=== PATIENT | male | born 1980 | race Caucasian/White ===

== ENCOUNTER → 2018-10-01 09:02 | Outpatient (CLI) | payer OTHER, SELFPAY ==
[2018-09-24 08:37] VITALS: BMI 29.8
--- NOTE | 2018-09-30 15:15 | MASS_PTH ---
PATIENT: LIZZIE MILLER LOC: [facility] U#:[id number] AGE/SX: 45/M ROOM: RE10/01/[address]: Dr. Zach Saab MD : [id number] BED: DIS: SPEC #: [id number] RECD: 09/30/18 16:25 STATUS: MARY KATE RECésar #: [id number] DESIRE: 09/30/18 15:[address]: Zach Saab DEPT: SURGICAL PATHOLOGY RECD BY: Tim Vásquez ENTERED: 10/01/18 10:30 SP TYPE: Mass OTHR DR: Dr. Aries Latif MD Tissues: Forehead, NOS Procedures: Surgery Specimen Level III HEADER OPERATION: Excision subcutaneous mass right forehead PRE-OP DIAGNOSIS: Lesion of subcutaneous tissue TISSUE SUBMITTED: Subcutaneous mass right forehead MICROSCOPIC DIAGNOSIS Subcutaneous mass right forehead, excision: Mature adipose tissue, consistent with lipoma. ERICK:yusuf 10/04/18 MICROSCOPIC DESCRIPTION Slides are reviewed. GROSS DESCRIPTION Received in fixative is one container labeled with the patient's name and designated right forehead. The specimen consists of two pieces of yellow adipose tissue measuring 1.5 x 1.5 x 0.5 cm and 0.5 x 0.5 x 0.2 cm. The larger piece is bisected. The entire specimen is submitted in one cassette. / SJ:rg 10/01/18 TC:1 CPT: 69036
--- OUTSIDE RECORDS SUMMARY | 2018-11-16 22:19 | XMS RPT_ITS ---
:1980 Author Organization OHIP Care Team Providers Name Role Phone KEL CARDENAS Referring Unavailable Zach Saab Attending Unavailable Aries Latif Referring Unavailable Zach Saab Attending Unavailable Zach Saab Referring Unavailable Aries Latif Primary Care Unavailable Zach Saab Attending Unavailable Aries Latif Referring Unavailable Lisa Harden PA-C Attending Unavailable Aries Latif Referring Unavailable PROBLEMS PROBLEMS DATE TYPE CONDITION / CODE ATTENDING STATUS SOURCE 10/01/2018 Unknown L98.9 - Disorder Zach Saab of the [facility] tissue, Repository unspecified / L98.9(ICD-10) PROCEDURES PROCEDURES No Procedure Records FoundRESULTS RESULTS SURGERY VISIT REPORT Observed: 10/07/2018 Status: F Source: [place] 12:42 PM [facility] REPOSITORY [facility] [address] [place] [address] OFFICE VISIT Date of Service: 09/30/18 MR#: [id number] Acct: [id number] Name: LIZZIE CRAMER Rep #: [id number] : 1980 Provider: Zach Saab MD Age/Sex: 38/M Location[place] [facility] Status: Signed Intake Intake Visit Reasons: Rt Forehead Lipoma Excision Chief Complaint: excision forehead mass Crimping Machine Operator Required: No Is patient in pain?: No Allergies No Known Allergies Allergy (Verified 10/06/18 14:24) Medications NK 09/24/18 [History Confirmed 09/24/18] [facility] Medical History No significant past medical history (Acute) Surgical History History of ankle surgery (Acute) History of placement of ear tubes (Acute) Hx of pilonidal cyst (Acute) Family History Mother Hypertension Father Hypertension Sister Hypertension Social History Smoking Status: Never smoker second hand exposure: No alcohol intake: current alcohol intake frequency: a few times a month substance use type: does not use caffeine: Yes what type of physical activity do you participate in: running, weight training frequency: 3-4 times per week seatbelt use: always HPI HPI HPI: LIZZIE CRAMER, is a 38 M who presents to the office today for Office Procedures Excision of Skin Provider Documentation Provider Documentation: Preoperative diagnosis: Lesion of subcutaneous tissue of right forehead Postoperative diagnosis: The same Procedure: Excision of a 1 cm subcutaneous lesion of right forehead Surgeon: Katiana Procedure: Right forehead area was sterilely prepped and draped in usual fashion. 1% lidocaine plain was injected. A 2 cm incision was made. Dissection was carried down through the subcutaneous tissue gently spread forehead muscle and identified a fatty lesion which I removed in its entirety. I brought the subcu back together with a 2-0 Vicryl in deep dermal stitches of 3-0 Vicryl on the skin. Dermabond was applied sterile dressings were applied and the patient tolerated the procedure well. Alert Uzma Alert Billing: Yes Face 49341 0.6-1.0cm Procedure Time Out Time Out Informed consent given: Yes Consent signed: Yes Time out checklist: patient, procedure, site marked/identified, positioning of patient, supplies available, allergies confirmed, team agrees on procedure Time out staff in room: Yes Time out verified: Yes Time out date: 09/30/18 Time out time: 15:05 Assessment AND Plan Orders Orders: Coding Level of Care Code Attention Uzma Additional Codes Face - Benign Face: 72461 0.6-1.0cm (20121) 10/07/18 1242 <Electronically signed by Zach Saab MD> Date Zach Saab MD Cosigner Signature: Date (if applicable) CC: SURGERY VISIT REPORT Observed: 10/06/2018 Status: F Source: [place] 4:11 PM [facility] REPOSITORY [facility] [address] [place] [address] [address] [place] [address] OFFICE VISIT Date of Service: 10/06/18 MR#: [id number] Acct: [id number] Name: LIZZIE CRAMER Rep #: [id number] : 1980 Provider: Lisa Harden PA-C Age/Sex: 38/M Location: [facility] Status: Signed Intake Intake Visit Reasons: F/U EXCISION OF FOREHEAD LIPOMA 09/30/18 DP Chief Complaint: wound check forehead Crimping Machine Operator Required: No Is patient in pain?: No Allergies No Known Allergies Allergy (Verified 10/06/18 14:24) Medications NK 09/24/18 [History Confirmed 09/24/18] Subjective Details: Patient is a 2 y/o male I am following for subcutaneous mass on the forehead. Dr. Saab performed an excision of the subcutaneous mass on 09/30/18. Pathology demonstrated a lipoma. Patient tolerated the procedure well. He notes very minimal amount of pain/discomfort. He notes minimal amount of swelling. Objective Details: Forehead- incision c/d/i. No erythema or infection noted. No sutures were removed. Assessment AND Plan Problems 1. Lipoma D17.9 Plan - Follow-up as needed Coding Level of Care Code Global Post Op Diagnoses Lipoma D17.9 10/06/18 1611 <Electronically signed by Lisa Harden PA-C> Date Lisa Harden PA-C Cosigner Signature: Date (if applicable) CC: Aries Latif MD MASS (DEFINE AREA) Observed: 09/30/2018 Status: F Source: [place] 3:15 PM [facility] REPOSITORY Patient: LIZZIE CRAMER : 1980 (38/M) Acct Num: [id number] Phys: Katiana TRAN,Zach Unit Num: [id number] Loc: [facility] Specimen: [id number] Received: 09/30/18 1625 Spec Type: Mass TISSUES 1 TISSUES: Forehead, NOS GROSS DESCRIPTION Received in fixative is one container labeled with the patient's name and designated right forehead. The specimen consists of two pieces of yellow adipose tissue measuring 1.5 x 1.5 x 0.5 cm and 0.5 x 0.5 x 0.2 cm. The larger piece is bisected. The entire specimen is submitted in one cassette. / ERICK:yusuf 10/01/18 TC:1 CPT: 50024 HEADER OPERATION: Excision subcutaneous mass right forehead PRE-OP DIAGNOSIS: Lesion of subcutaneous tissue TISSUE SUBMITTED: Subcutaneous mass right forehead MICROSCOPIC DESCRIPTION Slides are reviewed. MICROSCOPIC DIAGNOSIS Subcutaneous mass right forehead, excision: Mature adipose tissue, consistent with lipoma. ERICK:yusuf 10/04/18 Signed Otis Freedman MD 10/04/18 <signature on file> Performed By: #### PMASS #### [facility] [address] [place], [address] SURGERY VISIT REPORT Observed: 09/24/2018 Status: F Source: [place] 10:33 AM [facility] REPOSITORY [facility] [address] [place] [address] OFFICE VISIT Date of Service: 09/24/18 MR#: [id number] Acct: [id number] Name: LIZZIE CRAMER Rep #: [id number] : 1980 Provider: Zach Saab MD Age/Sex: 38/M Location: [facility] Status: Signed Intake Vital Signs09/24/18 Blood Pressure 149/106 H 09/24/18 Blood Pressure Location Rt brachial Intake Visit Reasons: Rt Forehead Lipoma Crimping Machine Operator Required: No Is patient in pain?: No Allergies No Known Allergies Allergy (Verified 09/24/18 08:39) Medications NK 09/24/18 [History Confirmed 09/24/18] PFSH Surgical History History of ankle surgery (Acute) History of placement of ear tubes (Acute) Hx of pilonidal cyst (Acute) Family History Mother Hypertension Father Hypertension Sister Hypertension Social History Smoking Status: Never smoker second hand exposure: No alcohol intake: current alcohol intake frequency: a few times a month substance use type: does not use caffeine: Yes what type of physical activity do you participate in: running, weight training frequency: 3-4 times per week seatbelt use: always HPI HPI HPI: LIZZIE CRAMER, is a 38 M who presents to the office today for evaluation of a subcutaneous lesion on his right forehead area. This is been there for better than a year and a half and gradually increasing in size. He cannot recall any trauma. He is concerned by its presence. He is never had any infections in this area and this lesion has never drained from the skin. ROS General General: No weight change, appetite, fatigue, colon cancer, breast cancer or weakness HEENT HEENT: No difficulty swallowing, eye injury, eye surgery, swollen glands or hoarseness Endo Endocrine: No thyroid disease, diabetes mellitus, thyroid cancer, Hair loss, heat intolerance or cold intolerance Skin Skin: No rash or changing moles Musc Musculoskeletal: No back problems, arthritis, rheumatoid arthritis, gout or joint pain Cardio Cardiovascular: No murmur, pacemaker, heart disease, atrial fibrillation, high blood pressure, heart attack, heart stent, palpitations, shortness of breat with exertion or chest pain Psych Psychiatric: No depression, anxiety or hearing voices Resp Respiratory: No shortness of breath, No sleep apnea, No cough, No COPD, No asthma, No emphysema, No wheezing Gastro Gastrointestinal: No abdominal pain, No nausea or vomiting, No diarrhea, No constipation, No blood in stool, No acid reflux, No hemorrhoids, No ulcers, No gallbladder problem, No black,tarry stools Betito Hematologic: No blood thinners, No blood disorders, No bleeding, No anemia, No blood clots Neuro Neurologic: No system reviewed and no additional complaints, except as docu, No as per HPI, No abnormal walking, No abnormal hearing, No abnormal movements, No abnormal speech, No behavioral changes, No burning sensations, No confusion, No seizure-like activity, No unsteadiness, No dizziness, No localized weakness, No frequent falls, No headache(s), No lack of coordination, No loss of vision, No memory loss, No numbness, No other visual disturbances, No radiating pain, No restless legs, No sensory deficit, No fainting, No tingling, No tremor(s), No weakness, No other Exam Cardio Heart Sounds: no murmurs Skin Other: Right forehead area shows a 1.5 cm subcutaneous lesion that is movable on the scalp. There is no signs of cellulitis. There is no punctated openings and it is not consistent with a sebaceous cyst. I see no vascular malformations around the area. Assessment AND Plan Problems 1. Lesion of subcutaneous tissue L98.9 Plan My plan will be to excise this in the office. Risk benefits have been reviewed. The patient agrees to proceed. All questions asked have been answered. He is currently not on any blood thinners. His blood pressure was high today in the office and we are going to recheck this. If it remains elevated we will be getting back in contact with his primary care physician Coding Level of Care Code Off vis,est,level 2 Diagnoses Lesion of subcutaneous tissue L98.9 09/24/18 1033 <Electronically signed by Zach Saab MD> Date Zach Saab MD Cosigner Signature: Date (if applicable) CC: Aries Latif MD PROGRESS Observed: 01/06/2018 Status: COMPLETED Source: [place] 3:54 PM [facility] REPOSIT[facility] HNO ID: [id number] Author: Wendy (Cooling Pan Tender) IZAIAH Giang.[facility] Service: (none) Author Type: Nurse Practitioner Type: Progress Notes Filed: 01/06/2018 4:45 PM Note Text: Subjective HPI HPI Lizzie Cramer is a 37 year old male who presents today for CC of tooth pain. This started today. Has tried ibuprofen. Symptoms are worsened by nothing. Risk factors hx of tooth abscess. .Patient presents with: Dental Problem: right lower tooth pain x today with swelling PAST MEDICAL HISTORY Diagnosis Date - Essential hypertension, benign - Mixed hyperlipidemia - Seasonal allergies PAST SURGICAL HISTORY Procedure Laterality Date - PAST SURGICAL HISTORY OF 2005 left foot/leg surgery. Dr Dudley Mann ([facility]) - PAST SURGICAL HISTORY OF 2010 pilonidal cyst abscess, IANDD - PAST SURGICAL HISTORY OF childhood adenoidectomy ALLERGIES Bee Sting; Cats; Seasonal Allergies MEDICATIONS oxyCODONE-acetaminophen (PERCOCET) 5-325 mg tablet 1 to 2 tabs po q 4 hours prn amoxicillin-clavulanic acid (AUGMENTIN) 875-125 mg per tablet Take 1 tablet by mouth twice daily. FAMILY HISTORY Problem Relation Age of Onset - Hypertension Mother - Hypertension Father - Coronary Artery Disease Paternal Grandfather NV - Coronary Artery Disease Maternal Grandfather NV - Coronary Artery Disease Maternal Uncle NV Social History Substance Use Topics - Smoking status: Current Some Day Smoker Types: Cigarettes - Smokeless tobacco: Never Used Comment: occasionally has 1-2 cigarette a day - Alcohol use 4.5 - 6.0 oz/week 3 - 4 Cans of Beer (12oz) per week Review of Systems Constitutional: Negative for chills and fever. Respiratory: Negative for cough, shortness of breath and wheezing. Cardiovascular: Negative for chest pain. Skin: Negative for itching and rash. Objective Blood pressure 118/82, pulse 74, temperature 37 ?C (98.6 ?F), temperature source Tympanic, resp. rate 16, weight 107.5 kg (237 lb). Physical Exam Constitutional: He is oriented to person, place, and time and well-developed, well-nourished, and in no distress. Non-toxic appearance. He does not have a sickly appearance. No distress. HENT: Head: Normocephalic and atraumatic. Right Ear: Hearing, tympanic membrane, external ear and ear canal normal. Left Ear: Hearing, tympanic membrane, external ear and ear canal normal. Nose: Nose normal. Mouth/Throat: Uvula is midline, oropharynx is clear and moist and mucous membranes are normal. Abnormal dentition (missing/broken teeth on right). Dental caries present. Eyes: Conjunctivae and lids are normal. Pupils are equal, round, and reactive to light. Right eye exhibits no discharge. Left eye exhibits no discharge. No scleral icterus. Neck: Trachea normal and normal range of motion. Neck supple. Cardiovascular: Normal rate, regular rhythm and normal heart sounds. Pulmonary/Chest: Effort normal and breath sounds normal. Lymphadenopathy: He has no cervical adenopathy. Neurological: He is alert and oriented to person, place, and time. Skin: No rash noted. He is not diaphoretic. ASSESSMENT/PLAN: 1. Dental abscess - ICD9: 522.5, ICD10: K04.7 -ibuprofen for pain -take medication as prescribed -discussed red flags and reasons for urgent follow up -follow up with dentist ZAYRA - AMOXICILLIN 875 MG-POTASSIUM CLAVULANATE 125 MG TABLET Prescription instructions reviewed with patient as applicable. Patient advised if symptoms do not improve or if symptoms worsen sooner, to contact the office for further evaluation by their primary care physician. Potential red flag symptoms discussed with the patient. Reviewed appropriate action plan to take if red flag symptoms occur. Patient agreeable to treatment plan. Wendy Giang APRN.CNP CNOV Observed: 01/06/2018 Status: COMPLETED Source: [place] 3:45 PM [facility] REPOSITORY [facility] LIZZIE CRAMER ([id number]) 1980 M Date Time Provider Department 01/06/18 3:45 PM WENDY GIANG (KRISTEN) [facility] During your visit today, we recorded the following information about you: Temperature Pulse Respiration Blood pressure 98.6 degrees 74/minute 16/minute 118/82 Weight 107.5 kg Wendy Giang APRN.CNP, APRN.CNP 01/06/2018 4:45 PM Signed Subjective HPI HPI Lizzie Cramer is a 37 year old male who presents today for CC of tooth pain. This started today. Has tried ibuprofen. Symptoms are worsened by nothing. Risk factors hx of tooth abscess. .Patient presents with: Dental Problem: right lower tooth pain x today with swelling PAST MEDICAL HISTORY Diagnosis Date - Essential hypertension, benign - Mixed hyperlipidemia - Seasonal allergies PAST SURGICAL HISTORY Procedure Laterality Date - PAST SURGICAL HISTORY OF 2005 left foot/leg surgery. Dr Dudley Mann ([facility]) - PAST SURGICAL HISTORY OF 2010 pilonidal cyst abscess, IANDamp;D - PAST SURGICAL HISTORY OF childhood adenoidectomy ALLERGIES Bee Sting; Cats; Seasonal Allergies MEDICATIONS oxyCODONE-acetaminophen (PERCOCET) 5-325 mg tablet 1 to 2 tabs po q 4 hours prn amoxicillin-clavulanic acid (AUGMENTIN) 875-125 mg per tablet Take 1 tablet by mouth twice daily. FAMILY HISTORY Problem Relation Age of Onset - Hypertension Mother - Hypertension Father - Coronary Artery Disease Paternal Grandfather NV - Coronary Artery Disease Maternal Grandfather NV - Coronary Artery Disease Maternal Uncle NV Social History Substance Use Topics - Smoking status: Current Some Day Smoker Types: Cigarettes - Smokeless tobacco: Never Used Comment: occasionally has 1-2 cigarette a day - Alcohol use 4.5 - 6.0 oz/week 3 - 4 Cans of Beer (12oz) per week Review of Systems Constitutional: Negative for chills and fever. Respiratory: Negative for cough, shortness of breath and wheezing. Cardiovascular: Negative for chest pain. Skin: Negative for itching and rash. Objective Blood pressure 118/82, pulse 74, temperature 37 ?C (98.6 ?F), temperature source Tympanic, resp. rate 16, weight 107.5 kg (237 lb). Physical Exam Constitutional: He is oriented to person, place, and time and well-developed, well-nourished, and in no distress. Non-toxic appearance. He does not have a sickly appearance. No distress. HENT: Head: Normocephalic and atraumatic. Right Ear: Hearing, tympanic membrane, external ear and ear canal normal. Left Ear: Hearing, tympanic membrane, external ear and ear canal normal. Nose: Nose normal. Mouth/Throat: Uvula is midline, oropharynx is clear and moist and mucous membranes are normal. Abnormal dentition (missing/broken teeth on right). Dental caries present. Eyes: Conjunctivae and lids are normal. Pupils are equal, round, and reactive to light. Right eye exhibits no discharge. Left eye exhibits no discharge. No scleral icterus. Neck: Trachea normal and normal range of motion. Neck supple. Cardiovascular: Normal rate, regular rhythm and normal heart sounds. Pulmonary/Chest: Effort normal and breath sounds normal. Lymphadenopathy: He has no cervical adenopathy. Neurological: He is alert and oriented to person, place, and time. Skin: No rash noted. He is not diaphoretic. ASSESSMENT/PLAN: 1. Dental abscess - ICD9: 522.5, ICD10: K04.7 -ibuprofen for pain -take medication as prescribed -discussed red flags and reasons for urgent follow up -follow up with dentist ZAYRA - AMOXICILLIN 875 MG-POTASSIUM CLAVULANATE 125 MG TABLET Prescription instructions reviewed with patient as applicable. Patient advised if symptoms do not improve or if symptoms worsen sooner, to contact the office for further evaluation by their primary care physician. Potential red flag symptoms discussed with the patient. Reviewed appropriate action plan to take if red flag symptoms occur. Patient agreeable to treatment plan. Wendy Giang APRN.KRISTEN Giang APRN.[place] PETERSON 01/06/2018 4:06 PM Signed ASSESSMENT/PLAN: 1. Dental abscess - ICD9: 522.5, ICD10: K04.7 -ibuprofen for pain -take medication as prescribed -discussed red flags and reasons for urgent follow up -follow up with dentist ZAYRA - AMOXICILLIN 875 MG-POTASSIUM CLAVULANATE 125 MG TABLET Referring Provider: SELF [200] Allergies As of Date: 01/06/2018 Noted Allergy Reaction BEE STING 04/07/2011 7 - Swelling Comments: denies SOB or breathing difficulty CATS 07/07/2013 16 - Unknown SEASONAL ALLERGIES 07/07/2013 16 - Unknown Comments: Trees, grasses, weeds, ragweed Date Reviewed: 01/06/2018 Reviewed by: Wendy Robertson) ANDRIA Giang - Fully Assessed Reason for Visit: Dental Problem [31] Cmt: right lower tooth pain x today with swelling Primary Visit Diagnosis:Dental abscess [K04.7] Order(s):amoxicillin-clavulanic acid (AUGMENTIN) 875-125 mg per tabletTake 1 tablet by mouth twice daily for 10 days.Disp: 20 tabletRfl: 0 Prescriptions as of 01/06/2018 Sig: AMOXICILLIN 875 MG-POTASSIUM * Take 1 tablet by mouth twice * OXYCODONE-ACETAMINOPHEN 5 MG-* 1 to 2 tabs po q 4 hours prn Medication notes this encounter OXYCODONE-ACETAMINOPHEN 5 MG-325 MG TABLET >> Nazanin Casey Ma 01/06/2018 3:49 PM >> NAZANIN CASEY MA ThuJan 06, 2018 3:49 PM done AMOXICILLIN 875 MG-POTASSIUM CLAVULANATE 125 MG TABLET >> Nazanin Casey Ma 01/06/2018 3:49 PM >> NAZANIN CASEY MA ThuJan 06, 2018 3:49 PM done More... Problem List As Of Date 01/06/2018 Noted Resolved Pilonidal cyst with abscess [L05.01] INVALID FOR* More... Essential hypertension, benign [I10] INVALID FOR* Mixed hyperlipidemia [E78.2] INVALID FOR* Seasonal allergies [J30.2] Other instructions from your clinician: ASSESSMENT/PLAN: 1. Dental abscess - ICD9: 522.5, ICD10: K04.7 -ibuprofen for pain -take medication as prescribed -discussed red flags and reasons for urgent follow up -follow up with dentist ZAYRA - AMOXICILLIN 875 MG-POTASSIUM CLAVULANATE 125 MG TABLET Prescriptions ordered this encounter Disp Refills Start End AMOXICILLIN 875 MG-POTASSIUM CLAVULA* 20 t* 0 01/06/2018 01/16/2018 Route: ORAL Sig: Take 1 tablet by mouth twice daily for 10 days. Medications Discontinued During This Encounter amoxicillin-clavulanic acid (AUGMENT* 14 t* 0 03/01/2015 01/06/2018 Class: Print RX Route: ORAL Sig: Take 1 tablet by mouth twice daily. Disc: Discontinued by another Health Care Provider Encounter Status:Closed by WENDY GIANG CNP on 01/06/18 ALLERGIES ALLERGIES DATE TYPE / CODE NAME / CODE REACTION SEVERITY SOURCE 10/06/2018 Drug No Known Unknown [facility] Allergy/416 Allergies/N09150 [facility] 424286(SNOM 0388(RXNORM) Repository ED CT) 07/07/2013 Animal/4201 CATS UNKNOWN [facility] 00338(SNOME [facility] [place] [facility]) Repository 07/07/2013 Environ/420 SEASONAL UNKNOWN [facility] 727343(SNOM ALLERGIES [facility] [place] [facility]) Repository 04/07/2011 Environ/420 BEE STING SWELLING [facility] [id number](SNOM [facility] [place] [facility]) Repository ENCOUNTERS ENCOUNTERS ADMIT/DISCHARGE ACCOUNT ADMITTING ENCOUNTER LOCATION SOURCE NUMBER CLASS 10/06/2018/10/06/20 [id number] Ambulatory BMSBuilding:[address] [place] [address] [place] Repository 10/01/2018 [id number] Ambulatory [facility] ing:[facility] Repository 09/30/2018/09/30/20 [id number] Ambulatory BMSBuilding:B [place] [address] Repository 09/24/2018/09/24/20 [id number] Ambulatory BMSBuilding:B [place] [address] [place] Repository 01/06/2018/01/13/20 [id number] Ambulatory [address] Repository PAYERS PAYERS ENCOUNTER GUARANTOR PAYER SUBSCRIBER SOURCE 10/06/2018 LIZZIE KUNZ Primary MATT [facility] [id number] Insurance:[facility] ROCÍO: [facility] RADHA lund [facility]: [id number], [id number] [place]ository [place] [address]Jzt: Date:1509-63-68[address] [place] () [id number]: 10/06/2018 Secondary NOT GIVENUNK B[place] Insurance:SELF PAY [facility] Number: Effective Repository Date:2018-09-30 10/01/2018 [facility] Primary MATT [facility] [id number] Insurance:[employer]P SCHLABACHDOB: Community GARCIA olicy Number: [id number], [id number] Repository [place] [address]Zcw: Date:3298-18-05QR [address] [place] () [id number]: 10/01/2018 Secondary NOT GIVENUNK [place] Insurance:SELF PAY [facility] Number: Effective Repository Date:2018-10-01 09/30/2018 [facility] Primary MATT [facility] [id number] Insurance:[employer] SCHLABACHDOB: Community GARCIA olicy Number: [id number], [id number] Repository [place] [address]Wqu: Date:8853-46-63[address] [place] () [id number]: 09/30/2018 Secondary NOT GIVENUNK [place] Insurance:SELF PAY [facility] Number: Effective Repository Date:2018-09-30 09/24/2018 [facility] Primary MATT [facility] [id number] Insurance:[employer] SCHLABACHDOB: Community GARCIA olicy Number: [id number], [id number] Repository [place] [address]Wco: Date:5584-41-38QH [address] [place] () [id number]: 09/24/2018 Secondary NOT GIVENUNK [place] Insurance:SELF PAY [facility] Number: Effective Repository Date:2018-09-21
== END ==
PROVIDERS: Family Provider Family Medicine; PCP Family Medicine; Referring Provider Surgery; Visit Provider Surgery
DX: L98.9 Disorder of the skin and subcutaneous tissue, unspecified (principal)
CPT/HCPCS: 88304; 88305

== ENCOUNTER → 2021-06-18 10:27 | Outpatient (CLI) | payer OTHER, SELFPAY | PROVIDERS: PCP Family Medicine; Referring Provider Physician Assistant Surgical; Visit Provider Physician Assistant Surgical | DX: R50.9 Fever, unspecified (principal) | CPT/HCPCS: 87633 ==

== ENCOUNTER 2023-04-02 12:51 | Day surgery (SDC) | payer OTHER, SELFPAY ==
[2023-04-02 13:12] VITALS: BP 141/90; PULSE 70; RESP 16; TEMP 36.8; O2SAT 100; BMI 30.2
[2023-04-02] MEDS: Lactated Ringers 1,000 ML 15 ML IV (13:29)
[2023-04-02 16:34] VITALS: BP 128/83; BP 141/90; PULSE 84; RESP 16; TEMP 36.2; O2SAT 98
[2023-04-02] MEDS: Ketorolac 30 MG/ML Syringe IV (16:36)
--- NOTE | 2023-04-02 16:37 | DCINST_ITS ---
Discharge Instructions Follow Up Care Test Results: Test results from this visit will be discussed in further detail at your follow- up appointment, if applicable. Discharge Plan Admission Primary Reason for Your Visit: Right Achilles tendon repair Attending Provider: Timothy Barton Primary Care Provider: Care Physician,No Primary Instructions Additional Instructions / Restrictions: Follow preprinted instructions from your surgeons office. Discharge Orders/Prescriptions Prescriptions: No Action NK Referrals / Follow Up: Timothy Barton DO [Med Staff - Active Staff] - Care Physician,No Primary [Primary Care Provider] - Disposition Disposition (needs filled in before D/C Order can be placed): Home, Self Care
--- NOTE | 2023-04-02 16:37 | PCM.OPRPT ---
Report of Operation Date of Procedure: 04/02/23 Description of Surgical Findings:: Preoperative diagnosis: Right Achilles tendon rupture Postoperative diagnosis: Right Achilles tendon rupture Procedure: Percutaneous right Achilles tendon repair Surgeon: Timothy Barton DO Photoengraving Machine Operator/Tender: Wendy Inmna PA-C Anesthesia: General with peroneal block Accounts Officer: Nicholas Aguirre CRNA Complications: None apparent Drains: None Estimated blood loss: 10 cc Urinary output: None recorded IV fluids: Per anesthesia record Specimens: None Surgical implants: Arthrex suture tape x 6 Surgical indications: This is a 42-year-old male who is otherwise healthy who sustained an ankle injury approximately 1 week ago ago playing basketball. He noted immediate pain in the Achilles tendon and weakness with plantarflexion. Patient was seen in our office. Urgent MRI was obtained due to a positive Prater maneuver and concerning findings for a Achilles tendon rupture. MRI confirmed the diagnosis. I saw the patient and we had a thorough discussion regarding operative versus nonoperative management of Achilles tendon injuries. We discussed the controversial increased risk of rerupture. He wished to proceed with surgical intervention. The risks, benefits, alternatives to the procedure reviewed with the patient at length. Informed consent was obtained. Risks included but were not limited to bleeding, infection, loss of life or limb, nonhealing wound or tendon, persistent pain, neurovascular injury, DVT or PE. Patient expressed understanding these risks and would wish to proceed with surgery. Description of procedure: Patient was seen in preoperative holding area. He was identified by name, medical record number, date of . The operative extremity was marked with a surgical marker. We confirmed informed consent with the patient and all questions were answered to her satisfaction. In the preoperative holding area, a popliteal block was administered by the anesthesia staff. At time of his procedure, patient was brought to the operative suite. General anesthesia was administered and endotracheal tube placed and secured on the patient's gurney. Patient was then positioned prone on the standard operating table with gel chest pads, axillary rolls bilaterally. All bony prominences were well-padded. A well-padded pneumatic tourniquet was applied to the right upper thigh prior to prone positioning. We then prepped and draped the right lower extremity in normal, sterile orthopedic fashion. We performed a timeout with all parties in attendance in agreement with the side, site, operation be performed. No concerns were voiced and we elected to proceed with surgery. 2 g Ancef was administered prior to the incision and prior to tourniquet inflation by anesthesia staff. I first exsanguinated the right lower extremity with an Esmarch bandage. Tourniquet was inflated to 250 mmHg remained up for approximately 30 minutes. Esmarch was removed. Due to the MRI findings of slightly more proximal than typical Achilles tendon ruptures and concern for musculotendinous junction injury, elected to proceed with standard longitudinal approach to the Achilles tendon. A longitudinal incision just medial to the midline of the tendon was made sharply with a 15 blade scalpel developing full-thickness layers down to the peritenon. Peritenon was injured. Remaining peritenon was split sharply in line with the incision. Tendon was encountered. Complete rupture was noted with a no remaining fibers in continuity. Distal tendon stump was palpated through the wound and felt to be approximately 6 cm consistent with the MRI findings. I transected the remaining fibers to elevate the proximal stump of tendon. Despite this being a slightly more proximal injury and concern for musculotendinous junction injury, a robust appearing fascial/tendon stump was encountered. This appeared to be appropriate for suture fixation. Tendonotic fibers were debrided. I secured the tendon with an Allis clamp and felt the mobility of the tendon was adequate for primary repair. I then utilized the PARS jig from Arthrex to percutaneously passed the fiber tape suture through the proximal segment of the tendon and were retrieved through the wound. Locking sutures were passed and the tendon was secured excellently with these sutures. I was able to apply longitudinal traction to the tendon of approximately 50 pounds without loss of fixation with the suture tape. In similar fashion, I turned my attention to the distal tendon stump and I then utilized the PARS jig from Arthrex to percutaneously passed the fiber tape suture through the proximal segment of the tendon and were retrieved through the wound. Locking sutures were passed and the tendon was secured excellently with these sutures. I was able to apply longitudinal traction to the tendon of approximately 50 pounds without loss of fixation with the suture tape. I then had my hospital nursing assistant tension the suture and hold the foot in maximal plantar flexion while I sequentially tied the corresponding sutures. Tension of the sutures appeared appropriate for repair. Sutures were cut. Prater test was normal following repair. I then deflated the tourniquet. Hemostasis was excellent. I copiously irrigated the wound with normal saline solution. Peritenon was closed watertight with a running, locking 2-0 Vicryl suture. Dermis was reapproximated with interrupted buried 3-0 Vicryl suture. Skin incision was finally closed with interrupted simple 3-0 nylon suture. Xeroform was applied to the wounds. A well-padded posterior fiberglass splint was then placed in maximal plantarflexion. Patient was then repositioned in the supine position, extubated and safely awoken from anesthesia in the operative suite. He was transferred to PACU in stable condition. Need for skilled hospital nursing assistant: Wendy Inman PA-C was critical to the outcome of the case. During the course of the procedure the physician hospital nursing assistant played a vital role. Her intimate knowledge of my steps in the procedure aided in safe and expedient completion of the procedure. The PA played a vital role in positioning particularly in obtaining the appropriate positioning. The PA was also vital in the retraction of soft tissues during the exposure and protecting vital structures. The PA was also vital and obtaining tendon reduction and assisting with suture placement. She also played a vital role in closure and splint application with my direct supervision. Post Operative Plan: Weightbearing: Nonweightbearing operative extremity Antibiotics: 2 g Ancef x 1 dose preoperatively DVT Prophylaxis: 81 mg aspirin twice daily to start tomorrow until first follow-up appointment in 2 weeks Dressing: Maintain splint, keep it clean dry and intact until follow-up X-Rays: None needed Pain Medication: Percocet prescription provided in the office Follow-up: 2 weeks post-operatively with me in the office as previously scheduled
[2023-04-02 16:45] VITALS: BP 134/83; BP 141/90; PULSE 65; RESP 16; O2SAT 100
[2023-04-02 16:52] VITALS: BP 137/90; BP 141/90; PULSE 55; RESP 16; O2SAT 100
[2023-04-02 17:22] VITALS: BP 124/79; BP 141/90; PULSE 55; RESP 16; TEMP 36.2; O2SAT 97
== END 2023-04-02 17:24 | disposition home or self-care (01) ==
LOC: SDC 12:55 → AC 12:57
PROVIDERS: Referring Provider Student in an Organized Health Care Education/Training Program; Visit Provider Student in an Organized Health Care Education/Training Program
PROC: (CPT 27650; principal; 2023-04-02 14:15)
DX: S86.011A Strain of right Achilles tendon, initial encounter (principal); R03.0 Elevated blood-pressure reading, without diagnosis of hypertension; E66.8 Other obesity; Z68.30 Body mass index [BMI] 30.0-30.9, adult
CPT/HCPCS: 27650; 01472; 64450; J7120; J2405

== ENCOUNTER 2024-12-23 16:58 | Emergency (ER) | payer OTHER, SELFPAY ==
[2024-12-23 16:58] VITALS: BP 162/86; PULSE 112; RESP 17; TEMP 38.2; O2SAT 95; BMI 29.8
--- NOTE | 2024-12-23 18:11 | EX.ED.DYSGE1 ---
HPI History of Present Illness Chief Complaint: General Illness [facility] Medical History (Updated 12/23/24 @ 22:[address] Meng Whiteside, DO) Wears contact lenses Non-smoker PONV (postoperative nausea and vomiting) No significant past medical history Allergy/AdvReac Type Severity Reaction Status Date / Time No Known Allergies Allergy Verified 12/23/24 17:01 Family History Mother Hypertension Father Hypertension Sister Hypertension Surgical History History of placement of ear tubes Hx of pilonidal cyst History of ankle surgery Social History (Updated 12/23/24 @ 18:02 by Georgiana Hoyt) household members: spouse housing: house Smoking Status: Never smoker second hand exposure: No alcohol intake: current alcohol intake frequency: a few times a month substance use type: does not use caffeine: Yes what type of physical activity do you participate in: running and weight training frequency: 3-4 times per week seatbelt use: always EXAM Physical Exam Const Vital Signs: 12/23/24 16:58 12/23/24 18:02 12/23/24 18:58 Temperature 100.8 F H Temperature Source Temporal Pulse Rate 112 H 87 Respiratory Rate 17 Respiratory Effort Normal Non-Labored Respiratory Pattern Normal Blood Pressure 162/86 H 132/76 H Blood Pressure Mean 111 94 Pulse Ox 95 96 Oxygen Delivery Method Room Air 12/23/24 19:55 12/23/24 20:00 12/23/24 22:00 Temperature Temperature Source Pulse Rate 78 90 Respiratory Rate Respiratory Effort Respiratory Pattern Blood Pressure 132/89 H 131/72 H Blood Pressure Mean 103 91 Pulse Ox 95 98 94 Oxygen Delivery Method Room Air MDM MDM MDM Narrative Medical decision making narrative: HISTORY OF PRESENT ILLNESS: 44-year-old male presents with concern for fevers cough and not feeling well for the last 3 days. Notes he started Tamiflu on Thursday. He endorses dizziness. He also notes chest pains pressure with a deep breath and coughing. The patient denies recent surgery in the last 4 weeks or immobilization in the last 3 days, denies previous diagnosis of DVT or PE, hemoptysis, unilateral leg swelling or malignancy with treatment the last 6 months or palliative. No estrogen use noted. No leg swelling. REVIEW OF SYSTEMS: Pertinent positives: Cough, fever, dizziness, chest pain Pertinent negatives: Vomiting, loss of consciousness PHYSICAL EXAM: Nursing triage notes reviewed, Vital signs reviewed Constitutional: please see mdm HENT: MMM Eyes: Pupils equal round and reactive to light, Extraocular muscles intact Neck: No stridor, no JVD, full neck ROM Lungs: Clear to auscultation, No wheezing or rales. No increased work of breathing, no conversational dyspnea, no accessory muscle use, no nasal flaring. No respiratory distress noted Heart: Regular rate and rhythm, No murmurs, No rubs and No gallops, 2+ distal pulses (radial, femoral, posterior tibial) in all extremities Abdomen: Soft, there is no tenderness, rigidity, rebound or guarding, no obvious peritoneal signs, no palpable pulsatile abdominal masses, no auscultated abdominal bruit : No CVAT Extremities: No edema Neuro: No new focal neurological deficits, cranial nerves II through XII intact, 5/5 strength in all present extremities. Intact sensation to light touch in all present extremities, 2+ reflexes bilateral patella tendons. NIH of 0 Skin: No rash or lesions noted MEDICAL DECISION MAKING: Chief Complaint: Cough, fever, dizziness External records reviewed: Prior imaging reviewed Factors affecting care: none Social determinants of health: none History obtained from others: Patient's Consults: none [facility] Narrative: The patient was initially tachycardic, febrile with a temperature 100.8, otherwise saturating well on room air. Exam without focal cardiopulmonary abnormalities. I considered the following differential diagnosis: Influenza, viral URI, pneumonia, dehydration, anemia, electrolyte disturbance I obtained a broad lab and imaging workup to further elucidate the etiology of the patient's complaint initially treat the patient with Tylenol, IV Toradol and 1 L normal saline. ALL IMAGES (IF OBTAINED) HAVE BEEN PERSONALLY REVIEWED AND INTERPRETED BY MYSELF. EKG with normal sinus rhythm rate of 98, normal axis, normal intervals, no STEMI I have personally reviewed the patient's chest x-ray. Chest x-ray is unremarkable for pulmonary edema, pneumothorax, pneumonia or focal cardiopulmonary abnormality. CBC without leukocytosis, severe anemia, no thrombocytopenia. BMP without evidence of significant electrolyte abnormalities, no anion gap, no acute kidney injury. High-sensitivity troponin is negative, no evidence of myocardial ischemia Upon reassessment patient's temperature did increase to 100.8 however his heart rate improved to 90. He was given additional dose of Tylenol and Toradol. The synthesis of the patient's history, physical exam, labs images suggest likely influenza induced fever and viral prodrome. No sign of any life or limb during etiology specifically in the chest. Specifically no sign of significant dehydration, anemia, electro disturbances, bacterial pneumonia. Patient was given strict return precautions and follow-up instructions. All questions answered. The patient and/or family, caregivers express understanding. The patient and/or family, caregivers agrees with the plan. Shared decision making: I will have a discussion with the patient and or visitors regarding risk/benefits of further testing or admission. They will be made aware of of the risk/benefits inherent in this decision they will be given the opportunity to voice understanding. Total critical care time today provided was at least 0 minutes. This excludes separately billable procedures. Critical care time (if documented) is secondary to the patient having high probability of clinically significant/life threatening deterioration in the patient's condition which required my urgent intervention. Impression: 1. Influenza B 2. Fever Dispo: Discharge home This note was generated with Haitaobei dictation software. It may contain incorrect words, spelling, and punctuation that were not noted in review of the chart prior to signing. Lab Data Labs: Laboratory Results - last 24 hr 12/23/24 12/23/24 19:33 21:36 WBC 9.5 RBC 4.62 Hgb 14.7 Hct 40.2 MCV 87.0 MCH 31.8 MCHC 36.6 H RDW Std Deviation 36.3 RDW Coeff of Brunilda 11.4 L Plt Count 146 L MPV 8.3 Immature Gran % (Auto) 0.400 Neut % (Auto) 81.9 H Lymph % (Auto) 10.2 L [place] % (Auto) 6.6 Eos % (Auto) 0.7 Baso % (Auto) 0.2 Absolute Neuts (auto) 7.8 H Absolute Lymphs (auto) 0.97 Nucleated RBC % 0 Sodium 134 Potassium 3.8 Chloride 99 Carbon Dioxide 24.6 Anion Gap 10 BUN 16 Creatinine 1.27 H Estim Creat Clear Calc 87.28 Est GFR (MDRD) Non-Af 71 BUN/Creatinine Ratio 12.2 Glucose 112 H Calcium 9.0 Troponin T High Sens < 6 Troponin T Hi Sens 2 Hr 6 Radiography Diagnostic Testing: Clinical Impression(s) from Imaging Studies Chest X-Ray 12/23/24 19:00 IMPRESSION: No acute airspace abnormality. Reading Location: [facility] Discharge Plan Triage Chief Complaint: General Illness ED Provider: Meng Whiteside Dx/Rx/DC Orders Clinical Impression: Influenza Instructions: ED Influenza (Adult) Stand Alone Forms: ED Work / School Excuse Primary Care Provider: Care Physician,No Primary Referrals: Talon Joy MD [Med Staff - Active Staff] - Activity Restrictions/Additional Instructions: Thank you for trusting us with your care today! Your labs and images were consistent with influenza. There is no sign of damage to your heart, significant dehydration, significant electrolyte abnormality or pneumonia Influenza takes approximately 7 to 14 days to resolve. Please take Tylenol (2 pills, 650 mg), ibuprofen (2 pills, 400 mg) every 6 hours as needed for pain and fever control. Please take Zofran as needed for nausea and vomiting control at home. Please return to the emergency department if your symptoms change or worsen. Please follow with your primary care physician for further outpatient evaluation and management. Print Language: Estonian Disposition Disposition: Home, Self Care
[2024-12-23 18:58] VITALS: BP 132/76; PULSE 87; O2SAT 96
--- NOTE | 2024-12-23 19:00 | RAD_ITS ---
PROCEDURE: CHEST 1 VIEW (PORTABLE) REASON FOR EXAM: Cough, shortness of breath TECHNIQUE: Frontal view of the chest. COMPARISON: None FINDINGS: Cardiomediastinal silhouette is within normal limits. Lungs are clear. No sizable pneumothorax. RAD/Chest 1 View (Portable) IMPRESSION: No acute airspace abnormality. Reading Location: [facility]
[2024-12-23] MEDS: 0.9% Normal Saline (1000mL) 1,000 ML 999 ML IV (19:30)
[2024-12-23] MEDS: Acetaminophen 325 MG Tablet 650 MG PO (19:30)
[2024-12-23] MEDS: Ketorolac 15 MG/ML Vial IV ×2 (19:30→21:49)
[2024-12-23 19:43] LABS: Absolute Lymphocyte Count 0.97 X10^3/uL (0.83-4.51); Absolute Neutrophil Count 7.8 X10^3/uL (2.0-7.7); Basophil# 0.02 X10^3/uL; Basophil% 0.2 % (0-1); Eosinophil# 0.07 X10^3/uL; Eosinophils% 0.7 % (0-5); Hematocrit 40.2 % (40-54); Hemoglobin 14.7 g/dL (13.0-16.5); Lymphocyte # 0.97 X10^3/ul (0.83-4.51); Lymphocyte % 10.2 % (19-41); Mean Corp Hgb Conc 36.6 g/dL (32-36); Mean Corpuscular Hgb 31.8 pg (27.0-32.0); Mean Platelet Vol. 8.3 fl (6.2-12.0); Monocyte# 0.63 X10^3/uL; Monocyte% 6.6 % (0-10); NRBC Flagged by Analyzer 0 % (0-5); Neutrophil # 7.79 X10^3/uL (2.7-7.7); Neutrophil % 81.9 % (47-70); Platelet Count 146 K/mm3 (150-450); RBC Distribution Width CV 11.4 % (11.6-14.6); RBC Distribution Width SD 36.3 fl (35.1-43.9); Red Blood Count 4.62 M/mm3 (4.6-6.2); White Blood Count 9.5 K/mm3 (4.4-11.0)
[2024-12-23 19:55] VITALS: O2SAT 95
[2024-12-23 20:00] VITALS: BP 132/89; PULSE 78; O2SAT 98
[2024-12-23 20:09] LABS: Anion Gap 10 (5-15); BUN 16 mg/dL (4-19); BUN/Creat Ratio 12.2 RATIO (10-20); Carbon Dioxide 24.6 mmol/L (21.0-32.0); Chloride 99 mmol/L (98-108); Creatinine, Serum 1.27 mg/dL (0.70-1.20); EST Glomerular Filtration Rate 71 (>60); Estimated Creatinine Clearance 87.28 ml/min (50-250); Glucose 112 mg/dL (70-99); Potassium 3.8 mmol/L (3.3-5.1); Sodium Level 134 mmol/L (133-145)
[2024-12-23 20:24] LABS: Troponin T High Sensitivity < 6 ng/L (<=22)
[2024-12-23] MEDS: Acetaminophen 325 MG Tablet PO (21:49)
[2024-12-23] MEDS: 0.9% Normal Saline (500mL Bag) 500 ML 999 ML IV (21:49)
[2024-12-23 22:00] VITALS: BP 131/72; PULSE 90; O2SAT 94
[2024-12-23 22:00] LABS: Troponin T High Sens 2 HR 6 ng/L (<=22)
[2024-12-23 22:50] VITALS: BP 131/72; PULSE 90; RESP 18; TEMP 36.6; O2SAT 94
== END 2024-12-23 22:51 | disposition home or self-care (01) ==
PROVIDERS: Emergency Provider Emergency Medicine; Referring Provider Emergency Medicine; Visit Provider Emergency Medicine
DX: J10.1 Influenza due to other identified influenza virus with other respiratory manifestations (principal); R42 Dizziness and giddiness; R07.89 Other chest pain
CPT/HCPCS: 71045; 80048; 84484; 85025; 87631; 93005; 96361; 96374; 96376; 99284; A4216